=== PATIENT | male | born 1955 | race Caucasian/White ===

== ENCOUNTER 2016-12-09 11:54 | Emergency (ER) | payer BC ==
[~2016-12-09] VITALS: Ht 188 cm; Wt 138.1 kg
[~2016-12-09 11:54] MED LIST: BENA20TA3 PO; BENZ200C36 PO; CARV25TA2 PO; FURO20TA4 PO; PROM5SYR PO; SPIR25TA4 PO; WARF5TAB6 PO
--- OUTSIDE RECORDS SUMMARY | 2016-12-09 11:58 | XMS REPORT ---
Author Author Hema Rendon Organization [facility] Address [address] [place] [address] Care Team Providers Care Biodiesel Product Development Manager Name Role Phone Hema Rendon Unavailable [phone] PROBLEMS Type Condition ICD9-CM Code UFC22-CI Code Onset Dates Condition Status SNOMED Code Problem Diastolic CHF I50.30 Active 424508413 Problem TIA (transient ischemic attack) G45.9 Active 156831613 Problem Bradycardia R00.1 Active 73539118 Problem Sleep apnea G47.30 Active 48520232 Problem Systolic dysfunction I51.9 Active 000073922 Problem Atrial fibrillation I48.91 Active 27220936 Problem AICD (automatic cardioverter/defibrillator) present Z95.810 Active 625166780 Problem HTN (hypertension) I10 Active 63290231 Problem Ventricular tachycardia I47.2 Active 00723268 Problem Tricuspid valve regurgitation, nonrheumatic I36.1 Active 708801991 Problem Aortic valve insufficiency I35.1 Active 22331786 Problem Pulmonary embolism I26.99 Active 57529618 Problem PVC (premature ventricular contraction) I49.3 Active 18947784 Problem Mitral valve regurgitation I34.0 Active 41227533 Problem Hyperlipidemia E78.5 Active 31854607 ALLERGIES Unknown Allergies SOCIAL HISTORY No smoking Hx information available PLAN OF CARE VITAL SIGNS MEDICATIONS Unknown Medications RESULTS No Results PROCEDURES No Known procedures IMMUNIZATIONS No Known Immunizations
--- OUTSIDE RECORDS SUMMARY | 2016-12-09 11:59 | XMS REPORT ---
Author Hema Moura Organization [employer] Address Unknown Phone Unavailable Care Team Providers Care Content Assistant Name Role Phone Hema Rendon CP Unavailable Allergies No Known Allergies Problems Problem Type Condition Code Onset Dates Condition Status Problem Hyperlipidemia E78.5 Active Problem Bradycardia R00.1 Active Problem Diastolic CHF I50.30 Active Problem Systolic dysfunction I51.9 Active Problem HTN (hypertension) I10 Active Problem Sleep apnea G47.30 Active Problem AICD (automatic cardioverter/defibrillator) present Z95.810 Active Problem TIA (transient ischemic attack) G45.9 Active Problem Ventricular tachycardia I47.2 Active Problem Atrial fibrillation I48.91 Active Problem Mitral valve regurgitation I34.0 Active Problem Tricuspid valve regurgitation, nonrheumatic I36.1 Active Problem Aortic valve insufficiency I35.1 Active Problem Pulmonary embolism I26.99 Active Problem PVC (premature ventricular contraction) I49.3 Active Medications Medication Code System Code Instructions Start Date End Date Status Dosage Furosemide [facility] [address]-25 20 MG Orally Twice a day/As needed 1 tablet Albuterol Sulfate HFA [facility] [address]-47 108 (90 Base) MCG/ACT Inhalation every 4 hrs 2 puffs as needed Multivitamins [facility] [address] Orally Once a day 1 tablet Omeprazole [facility] [address]-10 20 MG Orally Once a day 1 capsule Promethazine VC/Codeine [facility] [address]-39 6.25-5-10 MG/5ML Orally every 6 hrs May 17, 2016 5 ml as needed Cefdinir [facility] [address]-98 300 MG Orally every 12 hrs 1 capsule Vitamin C [facility] [address]-58 1000 MG Orally Once a day 1 tablet Spironolactone [facility] 97736177753 25 TAKE ONE TABLET BY MOUTH DAILY Iophen C-NR [facility] [address]-79 100-10 MG/5ML Orally every 4 hrs May 23, 2016 5 ml Citracal + D NDC 0 Orally Once a day 1 tablet Losartan Potassium [facility] [address]-18 50 MG Orally Once a day May 25, 2016 1 tablet Warfarin Sodium [facility] [address]-14 5 MG Orally Once a day/As directed 1 tablet Carvedilol [facility] [address]-79 25 MG Orally Twice a day February 07, 2016 1 tablet with food Krill Oil [facility] [address] 300 MG Orally Once a day 1 capsule Results No Known Results Summary Purpose [employer] Submission
--- OUTSIDE RECORDS SUMMARY | 2016-12-09 11:59 | XMS REPORT | Referral Summary ---
Author Author [facility] Organization [facility] Address Unknown Phone Unavailable Care Team Providers Care Junior Assistant Manager Name Role Phone Blanca Cruz Primary Care Physician [phone] Encounter VC Date(s): 09/15/16 - 09/15/16 [facility] [address] [place], [place] [address] Discharge Disposition: 01-Home or Self Care Attending Physician: Emile Cruz MD Admitting Physician: Emile Cruz MD Vital Signs No data available for this section Problem List Condition Effective Dates Status Health Status Informant Device 01/22/14 - 01/25/14 Resolved Shock(Confirmed)1 Essential Active hypertension (disorder)(Confirmed ) H/o CHF(Confirmed) Active Irregular heart Active rhythm(Confirmed) Obstructive sleep Active apnea syndrome (disorder)(Confirmed ) Paroxysmal Active ventricular tachycardia (disorder)(Confirmed ) 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 ) Pulmonary Active embolism(Confirmed) Sleep Active apnea(Confirmed) Transient ischemic Active attack(Confirmed) Ventricular Active tachycardia(Confirme d) 1[facility]ization- [facility] Allergies, Adverse Reactions, Alerts No Known Medication Allergies Medications carvedilol 25 mg oral tablet 1 tabs, Oral, BID, # 60 tabs, 0 Refill(s) Start Date: 12/19/14 Status: Ordered furosemide 20 mg oral tablet 1 tabs, Oral, BID, 0 Refill(s) Start Date: 12/19/14 Status: Ordered losartan 50 mg oral tablet 50 mg 1 tabs, Oral, Daily, # 30 tabs, 11 Refill(s), Pharmacy: [facility] # [id number], 1 tabs Oral Daily Start Date: 05/25/16 Status: Ordered warfarin 5 mg oral tablet 1 tabs, Oral, Daily, # 30 tabs, 0 Refill(s) Start Date: 12/19/14 Status: Ordered Results No data available for this section Immunizations Given and Recorded Vaccine Date Status Refusal Reason influenza virus vaccine, inactivated 04/29/14 Recorded influenza virus vaccine, live 06/29/13 Given influenza virus vaccine, live 06/04/10 Given influenza virus vaccine, live 08/09/08 Given pneumococcal 13-valent conjugate vaccine 09/23/14 Recorded tetanus-diphth toxoids (Td) adult/adol 03/04/07 Given Procedures Procedure Date Related Diagnosis Body Site AICD Interrogation1 01/24/14 Transesophageal Echocardiography2 01/24/14 Echocardiogram3 01/23/14 Hospital admission [facility] 05/20/12 History of knee surgery 06/01/11 Hospital admission [facility] 09/2009 Cystoscopy, Lt Ureteroscopy, Laser 2009 pulverization6 ESWL-w/placement of double pigtail Urethral 2009 Stent Left Total Hip Arthroplasty 2009 Colonoscopy 11/09/08 Hospital admission [facility] 11/07/08 Colonoscopy 11/03/08 Hospital admission [facility] 11/01/08 Colonoscopy 06/17/07 History of total left hip replacement Vasectomy [address] [place] [address] Dr [facility] Hema Rendon -05/22/2012 Chest Pressure/Shortness of Breath 5Excrutiation Lt Flank Pain w/N&V 6Dense Lt Upper Ureteral Stone 7Left Kidney Stone/Chemical Analysis 18-11/14/2008 Gi Bleed secondary to Diverticular Bleed /-11/06/2008 Bloody Stool Social History Social History Type Response Smoking Status Former smoker Assessment and Plan No data available for this section
--- OUTSIDE RECORDS SUMMARY | 2016-12-09 11:59 | XMS REPORT ---
Author Hema Moura Organization [employer] Address Unknown Phone Unavailable Care Team Providers Care Barge Loader Name Role Phone Hema Rendon CP Unavailable [...] PVC (premature ventricular contraction) I49.3 Active Medications No Known Medications Results No Known Results Summary Purpose [employer] Submission
--- OUTSIDE RECORDS SUMMARY | 2016-12-09 11:59 | XMS REPORT | Referral Summary ---
Author Author [facility] Organization [facility] Address Unknown Phone Unavailable Care Team Providers Care Microbiological Analyst Name Role Phone Blanca Cruz Primary Care Physician [phone] Encounter VC Date(s): 05/12/16 - 05/12/16 [facility] [address] [place], [place] [address] Discharge Diagnosis: Cough Discharge Disposition: 01-Home or Self Care Attending Physician: Emile Cruz MD Admitting Physician: Emile Curz MD Vital Signs Most recent to 1 oldest [Reference Range]: Blood Pressure 120/66 mmHg [90-140/60-90 mmHg] (05/12/16 3:58 PM) Problem List Condition Effective Dates Status Health Status Informant Device 01/22/14 - 01/25/14 Resolved Shock(Confirmed)1 Essential Active hypertension (disorder)(Confirmed ) H/o CHF(Confirmed) Active Irregular heart Active rhythm(Confirmed) Obstructive sleep Active apnea syndrome (disorder)(Confirmed ) Paroxysmal Active ventricular tachycardia (disorder)(Confirmed ) 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 ) Pulmonary Active embolism(Confirmed) Sleep Active apnea(Confirmed) Transient ischemic Active attack(Confirmed) Ventricular Active tachycardia(Confirme d) [facility] Allergies, Adverse Reactions, Alerts No Known Medication Allergies Medications benazepril 40 mg oral tablet 1 tabs, Oral, Daily, # 30 tabs, 0 Refill(s) Start Date: 12/19/14 Status: Ordered carvedilol 25 mg oral tablet 1 tabs, Oral, BID, # 60 tabs, 0 Refill(s) Start Date: 12/19/14 Status: Ordered furosemide 20 mg oral tablet 1 tabs, Oral, BID, 0 Refill(s) Start Date: 12/19/14 Status: Ordered warfarin 5 mg oral tablet 1 tabs, Oral, Daily, # 30 tabs, 0 Refill(s) Start Date: 12/19/14 Status: Ordered Results No data available for this section Immunizations Vaccine Date Refusal Reason influenza virus vaccine, inactivated 04/29/14 influenza virus vaccine, live 06/29/13 influenza virus vaccine, live 06/04/10 influenza virus vaccine, live 08/09/08 pneumococcal 13-valent conjugate vaccine 09/23/14 tetanus-diphth toxoids (Td) adult/adol 03/04/07 Procedures Procedure Date Related Diagnosis Body Site AICD Interrogation1 01/24/14 Transesophageal Echocardiography2 01/24/14 Echocardiogram3 01/23/14 [facility] 05/20/12 History of knee surgery 06/01/11 Hospital admission [facility] 09/2009 Cystoscopy, Lt Ureteroscopy, Laser 2009 pulverization6 ESWL-w/placement of double pigtail Urethral 2009 Stent7 Left Total Hip Arthroplasty 2009 Colonoscopy 11/09/08 Hospital admission [facility] 11/07/08 Hospital admission [facility] 11/01/08 History of total left hip replacement Vasectomy [address] [place] [address] Dr [facility] H[facility]endon -05/22/2012 Chest Pressure/Shortness of Breath 5Excrutiation Lt Flank Pain w/N&V 6Dense Lt Upper Ureteral Stone 7Left Kidney Stone/Chemical Analysis -11/14/2008 Gi Bleed secondary to Diverticular Bleed -11/06/2008 Bloody Stool Social History Social History Type Response Smoking Status Former smoker Assessment and Plan Extracted from: Title: Office Visit Note Author: Emile Cruz MD Date: 05/12/16 Assessment/Plan Cough this could be GERD, check CXR, discussed antireflux measures and will start omeprazole with supper Ordered: Office Visit Level 3 Est 85644 XR Chest 2 Views
--- OUTSIDE RECORDS SUMMARY | 2016-12-09 11:59 | XMS REPORT | Referral Summary ---
Author Author [facility] Organization [facility] Address Unknown Phone Unavailable Care Team Providers Care Product Development Actuary Name Role Phone Blanca Cruz Primary Care Physician [phone] Encounter VC Date(s): 09/22/16 - 09/22/16 [facility] [address] [place], [place] [address] Discharge Disposition: 01-Home or Self Care Attending Physician: mEile rCuz MD Admitting Physician: Emile Cruz MD Vital [...] Active attack(Confirmed) Ventricular Active tachycardia(Confirme d) 1[facility] Allergies, Adverse Reactions, Alerts No Known Medication Allergies Medications carvedilol 25 mg oral tablet 1 tabs, Oral, BID, # 60 tabs, 0 Refill(s) Start Date: 12/19/14 Status: Ordered furosemide 20 mg oral tablet 1 tabs, Oral, BID, 0 Refill(s) Start Date: 12/19/14 Status: Ordered losartan 50 mg oral tablet 50 mg 1 tabs, Oral, Daily, # 30 tabs, 11 Refill(s), Pharmacy: [facility] # [id number], 1 tabs Oral Daily Start Date: 05/25/16 [...] [facility] -05/22/2012 Chest Pressure/Shortness of Breath 5Excrutiation Lt Flank Pain w/N&V 6Dense Lt Upper Ureteral Stone 7Left Kidney Stone/Chemical Analysis 18-11/14/2008 Gi Bleed secondary to Diverticular Bleed /-11/06/2008 Bloody Stool Social History Social History Type Response Smoking Status Former smoker Assessment and Plan No data available for this section
--- OUTSIDE RECORDS SUMMARY | 2016-12-09 11:59 | XMS REPORT ---
Author Author Hema Rendon Organization [facility] Address [address] [place] [address] Care Team Providers Care Lacrosse Coach Name Role Phone Hema Rendon Unavailable [phone] PROBLEMS Type Condition ICD9-CM Code KYQ99-DS Code Onset Dates Condition Status SNOMED Code Problem Diastolic CHF I50.30 Active 945120901 Problem TIA (transient ischemic attack) G45.9 Active 347464504 Problem Bradycardia R00.1 Active 87167318 Problem Sleep apnea G47.30 Active 44409664 Problem Systolic dysfunction I51.9 Active 473918403 Problem Atrial fibrillation I48.91 Active 72352748 Problem AICD (automatic cardioverter/defibrillator) present Z95.810 Active 772235790 Problem HTN (hypertension) I10 Active 38221186 Problem Ventricular tachycardia I47.2 Active 43648041 Problem Tricuspid valve regurgitation, nonrheumatic I36.1 Active 167248311 Problem Aortic valve insufficiency I35.1 Active 90693979 Problem Pulmonary embolism I26.99 Active 96187548 Problem PVC (premature ventricular contraction) I49.3 Active 12865659 Problem Mitral valve regurgitation I34.0 Active 13997797 Problem Hyperlipidemia E78.5 Active 54213844 ALLERGIES Unknown Allergies SOCIAL HISTORY No smoking Hx information available PLAN OF CARE VITAL SIGNS MEDICATIONS Medication Instructions Dosage Frequency Start Date End Date Duration Status Warfarin Sodium 5 MG Orally Once a day/As directed 1 tablet 30 days Active RESULTS No Results PROCEDURES No Known procedures IMMUNIZATIONS No Known Immunizations
--- OUTSIDE RECORDS SUMMARY | 2016-12-09 11:59 | XMS REPORT | Referral Summary ---
Author Author [facility] Organization [facility] Address Unknown Phone Unavailable Care Team Providers Care Wholesale Manager Name Role Phone Blanca Cruz Primary Care Physician [phone] Encounter VC Date(s): 10/07/16 - 10/07/16 [facility] [address] [place], [place] [address] Discharge Diagnosis: Low back pain Discharge Disposition: 01-Home or Self Care Attending Physician: Emile Cruz MD Vital Signs Most recent to 1 oldest [Reference Range]: Blood Pressure 120/70 mmHg [90-140/60-90 mmHg] (10/07/16 9:48 AM) Problem List Condition Effective Dates Status Health Status Informant Device 01/22/14 - 01/25/14 Resolved Shock(Confirmed)1 Essential Active hypertension (disorder)(Confirmed ) H/o CHF(Confirmed) Active Irregular heart Active rhythm(Confirmed) Obstructive sleep Active apnea syndrome (disorder)(Confirmed ) Paroxysmal Active ventricular tachycardia (disorder)(Confirmed ) 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 ) Pulmonary Active embolism(Confirmed) Sleep Active apnea(Confirmed) Transient ischemic Active attack(Confirmed) Ventricular Active tachycardia(Confirme d) 1[facility]ization- [facility] Allergies, Adverse Reactions, Alerts No Known Medication Allergies Medications carvedilol 25 mg oral tablet 1 tabs, Oral, BID, # 60 tabs, 0 Refill(s) Start Date: 12/19/14 Status: Ordered losartan 50 mg oral tablet 50 mg 1 tabs, Oral, Daily, # 30 tabs, 11 Refill(s), Pharmacy: [facility] # [id number], 1 tabs Oral Daily Start Date: 05/25/16 Status: Ordered spironolactone 25 mg oral tablet 25 mg 1 tabs, Oral, Daily, # 30 tabs, 0 Refill(s), other reason (Rx) Start Date: 10/07/16 Status: Ordered torsemide 20 mg oral tablet 20 mg 1 tabs, Oral, Daily, # 30 tabs, 0 Refill(s), other reason (Rx) Start Date: 10/07/16 Status: Ordered warfarin 5 mg oral tablet [...] [facility] 09/2009 Cystoscopy, Lt Ureteroscopy, Laser 2009 pulverization ESWL-w/placement of double pigtail Urethral 2009 Stent Left Total Hip Arthroplasty 2009 Colonoscopy 11/09/08 Hospital admission [facility] 11/07/08 Colonoscopy 11/03/08 Hospital admission [facility] 11/01/08 Colonoscopy 06/17/07 History of total left hip replacement Vasectomy [address] [place] [address] Dr Anusha Rendon [address] [place] [address] Dr Anusha Rendon [address] [place] [address] Dr Hema Rendon /-05/22/2012 Chest Pressure/Shortness of Breath 5Excrutiation Lt Flank Pain w/N&V 6Dense Lt Upper Ureteral Stone 7Left Kidney Stone/Chemical Analysis -11/14/2008 Gi Bleed secondary to Diverticular Bleed -11/06/2008 Bloody Stool Social History Social History Type Response Smoking Status Former smoker Assessment and Plan Extracted from: Title: Office Visit Note Author: Emile Cruz MD Date: 10/07/16 Assessment/Plan Low back pain reassured, xray, booklet on back care for stretches and strengthening and consider PT next Ordered: Office Visit Level 3 Est 10775 XR Spine Lumbosacral 2 or 3 Views
--- OUTSIDE RECORDS SUMMARY | 2016-12-09 12:00 | XMS REPORT ---
Author Author Hema Rendon Organization [facility] Address [address] [place] [address] Care Team Providers Care Nurse Assessor Name Role Phone Hema Rendon Unavailable [phone] PROBLEMS Type Condition ICD9-CM Code CNO78-EC Code Onset Dates Condition Status SNOMED Code Problem Diastolic CHF I50.30 Active 868654374 Problem TIA (transient ischemic attack) G45.9 Active 360015903 Problem Bradycardia R00.1 Active 20980003 Problem Sleep apnea G47.30 Active 85321588 Problem Systolic dysfunction I51.9 Active 830399130 Problem Atrial fibrillation I48.91 Active 06362352 Problem AICD (automatic cardioverter/defibrillator) present Z95.810 Active 777171473 Problem HTN (hypertension) I10 Active 52313120 Problem Ventricular tachycardia I47.2 Active 43362947 Problem Tricuspid valve regurgitation, nonrheumatic I36.1 Active 938557457 Problem Aortic valve insufficiency I35.1 Active 00342835 Problem Pulmonary embolism I26.99 Active 14690667 Problem PVC (premature ventricular contraction) I49.3 Active 35460055 Problem Mitral valve regurgitation I34.0 Active 91705522 Problem Hyperlipidemia E78.5 Active 39879580 ALLERGIES Unknown Allergies SOCIAL HISTORY No smoking Hx information available PLAN OF CARE VITAL SIGNS MEDICATIONS Unknown Medications RESULTS No Results PROCEDURES No Known procedures IMMUNIZATIONS No Known Immunizations
--- OUTSIDE RECORDS SUMMARY | 2016-12-09 12:00 | XMS REPORT | Continuity of Care Document ---
Author Author [facility] Organization [facility] Address Unknown Phone Unavailable Support Name Relationship Address Phone Darion HUGHES MD Caregiver [address] [facility] [address] [place] [address] YAMILE PATHAK MD Caregiver [address] [place] [address] [place] [phone] TOMEKA TINEO Caregiver [address] [facility] [address] [place] [address] OLGA HOYT Next Of Kin [address] [place] [address] Insurance Providers Payer Name Policy Number Subscriber Name Relationship [employer] Other [id number] Elvia Hoyt 19 Self Problems Medical Problems Problem Onset Date Status Dyspnea 10/09/2014 Active Orthopnea 10/09/2014 Active Pulmonary emboli Unknown Active CHF (congestive heart failure) Unknown Active Pulmonary emboli Unknown Active Medications Medication Dose Route Sig Days/Qty Instructions Order Date Discontinued Date Status Hydrochlorothiazide 1 Tab PO TWICE A DAY 10/09/14 Active Sotalol HCl 80 Mg PO BEFORE MEALS TWICE A DAY Take 1 tablet, by mouth, 2 times a day (before meals). 10/09/14 Active Metoprolol Tartrate 25 Mg PO TWICE DAILY WITH MEALS 10/09/14 Active Benazepril HCl 1 Tab PO DAILY 10/09/14 Active Rivaroxaban 20 Mg PO GIVE WITH SUPPER Take 1 tablet, by mouth, daily with evening meal. 10/09/14 Active Social History Social History Problem Response Recorded Date/Time Chewing Tobacco Status N QUIT 10/09/2014 8:47am Hx Substance Use No 10/09/2014 8:47am Hx Alcohol Use No 10/09/2014 8:47am Tobacco Usage none 10/09/2014 10:39am Query Response Start Date Stop Date Smoking Status Never smoker Hospital Discharge Instructions No hospital discharge instructions. Plan of Care No plan of care. Functional Status Query Response Date Recorded Physical Hygiene Self October 09, 2014 8:47am Disabilities Visual October 09, 2014 8:47am Devices Used Glasses October 09, 2014 8:47am Dressing Self October 09, 2014 8:47am Ambulation Self October 09, 2014 8:47am Diet Self October 09, 2014 8:47am Mental Status Alert Oriented October 09, 2014 10:29am Disabilities Visual October 09, 2014 8:47am Devices Used Glasses October 09, 2014 8:47am Physical Hygiene Self October 09, 2014 8:47am Dressing Self October 09, 2014 8:47am Ambulation Self October 09, 2014 8:47am Diet Self October 09, 2014 8:47am Allergies, Adverse Reactions, Alerts Allergen Type Severity Reaction Status Last Updated No Known Allergies Active 10/09/14 Immunizations Name Given Type Hx Influenza Vaccination Y 07/06 Historical Hx Pneumococcal Vaccination Y 09/06 Historical Hx Influenza Vaccination Y 07/06 Historical Vital Signs Acute Vital Signs Vital Response Date/Time Temperature (Fahrenheit) 97.7 deg F (96.8 - 99.1) Temperature (Calculated Celsius) 36.59781 degrees C (36.0 - 37.3) Pulse Rate (adult) 96 bpm (60 - 100) Respiratory Rate 22 breaths/min (10 - 20) O2 Sat by Pulse Oximetry 96 % (90 - 100) Oxygen Flow Rate 2 L/min Blood Pressure 141/102 mm Hg Height 6 ft 2 in Weight 275 lb Body Mass Index 35.0 kg/m^2 Results Test Source Date Result Interp. Ref. Range Comments Urine Mucus October 09, 2014 10:02am Present - Has specimen been collected/obtained? Y Urine Bacteria October 09, 2014 10:02am None seen - Has specimen been collected/obtained? Y Urine Squamous Epithelial Cells October 09, 2014 10:02am 0-5 - Has specimen been collected/obtained? Y Urine RBC October 09, 2014 10:02am 0-1 /HPF - Has specimen been collected/obtained? Y Urine WBC October 09, 2014 10:02am 0-1 /HPF - Has specimen been collected/obtained? Y Urine Blood October 09, 2014 10:02am Negative - Has specimen been collected/obtained? Y Urine Bilirubin October 09, 2014 10:02am Negative - Has specimen been collected/obtained? Y Urine Urobilinogen October 09, 2014 10:02am 0.2 EU/DL - Has specimen been collected/obtained? Y Urine Ketones October 09, 2014 10:02am Negative - Has specimen been collected/obtained? Y Urine Glucose (UA) October 09, 2014 10:02am Negative - Has specimen been collected/obtained? Y Urine Protein October 09, 2014 10:02am 2+ H - Has specimen been collected/obtained? Y Urine Nitrite October 09, 2014 10:02am Negative - Has specimen been collected/obtained? Y Urine Leukocyte Esterase October 09, 2014 10:02am Negative - Has specimen been collected/obtained? Y Urine pH October 09, 2014 10:02am 5.5 - Has specimen been collected/ obtained? Y Urine Specific [place] October 09, 2014 10:02am >=1.030 H - Has specimen been collected/obtained? Y Urine Turbidity October 09, 2014 10:02am Clear - Has specimen been collected/obtained? Y Urine Color October 09, 2014 10:02am Yellow - Has specimen been collected/obtained? Y Urine Collection Type October 09, 2014 10:02am Cleancatch-midstream - Has specimen been collected/obtained? Y Troponin I October 09, 2014 8:10am 0.028 ng/ml N 0-0.12 Turbidity October 09, 2014 8:10am < 20 0-20 Chemistry Specimen Hemolysis October 09, 2014 8:10am 46 H 0-25 0-25: No Hemolysis.26-70: Slight Hemolysis - can falsely elevate K and Urine Protein. 71-285: Moderate Hemolysis - can falsely elevate K, Troponin I, CA 19-9, PTH, CSF GLucose, and Urine Protein, and can falsely decrease Phenytoin. 286-999: Gross Hemolysis - can falsely elevate K, Troponin I, CA 19-9, PTH, CSF Glucose, and Urine Protine, and can falsely decrease Phenytoin. Recommend specimen recollection. Icterus Index October 09, 2014 8:10am < 2 0-7 PK-Rag-T-Type Natriuretic Peptide October 09, 2014 8:10am 4920 PG/ML H 0-175 Rule in cut points: <50 years old=450; 50-75 years old=900; >75 years old=1800; When utilizing ProBNP rule-in cut points, adjustment for impaired renal function is typically not required. Influenza Type B Antigen October 09, 2014 8:10am Negative - Negative for Flu B protein antigen. Assay sensitivity is90%. Influenza Type A Antigen October 09, 2014 8:10am Negative - Negative for Flu A protein antigen. Assay sensitivity is90%. Alanine Aminotransferase (ALT/SGPT) October 09, 2014 8:10am 68 U/L N 21 -72 Aspartate Amino Transf (AST/SGOT) October 09, 2014 8:10am 49 U/L N 17- 59 Albumin/Globulin Ratio October 09, 2014 8:10am 1.4 RATIO N 1.1-2.2 Globulin October 09, 2014 8:10am 2.8 G/DL N 2.4-3.6 Albumin October 09, 2014 8:10am 3.9 G/DL N 3.5-5.0 Total Protein October 09, 2014 8:10am 6.7 G/DL N 6.3-8.2 Alkaline Phosphatase October 09, 2014 8:10am 103 U/L N 38-126 Total Bilirubin October 09, 2014 8:10am 1.00 MG/DL N 0.20-1.30 Calcium Level October 09, 2014 8:10am 9.2 MG/DL N 8.4-10.2 Calculated Osmolality October 09, 2014 8:10am 287 MOSM/KG H 261-280 Glucose Level October 09, 2014 8:10am 172 MG/DL H 75-110 Glomerular Filtration Rate Calc October 09, 2014 8:10am 116 - BUN/Creatinine Ratio October 09, 2014 8:10am 34 RATIO H 6-26 Creatinine October 09, 2014 8:10am 0.7 MG/DL L 0.8-1.5 Blood Urea Nitrogen October 09, 2014 8:10am 24.0 MG/DL H 9-20 Anion Gap October 09, 2014 8:10am 13 MEQ/L N 5-15 Carbon Dioxide Level October 09, 2014 8:10am 22 MEQ/L N 22-30 Chloride Level October 09, 2014 8:10am 110 MEQ/L H 98-107 Potassium Level October 09, 2014 8:10am 4.4 MEQ/L N 3.6-5 Sodium Level October 09, 2014 8:10am 145 MEQ/L H 134-144 D-Dimer October 09, 2014 8:10am 319 NG/ML H 0-230 <230 NG/ML D-DU= PRESUMPTIVE NEGATIVE FOR PE OR DVT>230 NG/ML D-DU=ADDITIONAL EVAL FOR PE OR DVT RECOMMENDED Activated Partial Thromboplast Time October 09, 2014 8:10am 34.8 SEC N 24-36 Ordering r/o VTE Yes Prothromb Time International Ratio October 09, 2014 8:10am 1.49 H 0.81- 1.09 THERAPUTIC RANGE=2.00-3.00 FOR ANTI-THROMBOSIS THERAPUTIC RANGE=2.50- 3.50 FOR IMPLANTED VALVE Immature Granulocyte # (Auto) October 09, 2014 8:10am 0.01 T/MM3 N 0.00 -0.03 Basophils # (Auto) October 09, 2014 8:10am 0.0 T/MM3 N 0-0.2 Eosinophils # (Auto) October 09, 2014 8:10am 0.0 T/MM3 N 0-0.5 Monocytes # (Auto) October 09, 2014 8:10am 0.5 T/MM3 N 0-0.8 Lymphocytes # (Auto) October 09, 2014 8:10am 1.4 T/MM3 N 1-4.8 Neutrophils # (Auto) October 09, 2014 8:10am 5.7 T/MM3 N 1.8-7.7 Immature Granulocyte % (Auto) October 09, 2014 8:10am 0.1 % N 0.0-0.5 Basophils (%) (Auto) October 09, 2014 8:10am 0.4 % N 0-2 Eosinophils (%) (Auto) October 09, 2014 8:10am 0.5 % N 0-4 Monocytes (%) (Auto) October 09, 2014 8:10am 6.4 % N 0-9.0 Lymphocytes (%) (Auto) October 09, 2014 8:10am 17.8 % L 23-45 Neutrophils (%) (Auto) October 09, 2014 8:10am 74.8 % H 33-66 Mean Platelet Volume October 09, 2014 8:10am 12.1 UM3 N 9.4-12.4 Platelet Count October 09, 2014 8:10am 148 T/MM3 N 130-400 RDW Standard Deviation October 09, 2014 8:10am 47.7 FL N 36.9-50.2 Mean Corpuscular Hemoglobin Concent October 09, 2014 8:10am 33.1 GM/DL N 31-37 Mean Corpuscular Hemoglobin October 09, 2014 8:10am 29.6 UUG N 26-34 Mean Corpuscular Volume October 09, 2014 8:10am 89.4 UM3 N 80-100 Hematocrit October 09, 2014 8:10am 44.7 % N 41-53 Hemoglobin October 09, 2014 8:10am 14.8 GM/DL N 13.5-17.5 Red Blood Count October 09, 2014 8:10am 5.00 M/MM3 N 4.50-5.90 White Blood Count October 09, 2014 8:10am 7.6 T/MM3 N 4.5-11.0 Name: ELVIA HOYT Unit #: [id number] : [id number] Sex: M Loc / Svc: ED DOS: 10/09/14 Signed Report #: [id number] DIAGNOSTIC IMAGING REPORT TYPE OF EXAM: CTA PULMONARY EMBOLI Dictated By: JUANA SHAHID MD Indication: ITS.REASON: DYSPNEA, ORTHOPNEA, ELEVATED DDIMER CTA PULMONARY EMBOLI: Comparison: None Technique: Axial CT pulmonary angiographic phase images were performed through the chest after the administration of intravenous contrast. Coronal MIP reformats Contrast: Isovue 370 74 mL Findings: Pulmonary arteries: Exam is diagnostic to the subsegmental pulmonary arterial level. There are apparent filling defects within two left lower lobe subsegmental pulmonary artery branches. Other findings: There are small to moderate bilateral pleural effusions with scattered groundglass opacities in both lower lobes. No pneumothorax. No focal consolidative pneumonia. The central airways are patent. No axillary adenopathy. Mildly prominent left paratracheal and prevascular lymph nodes measuring up to 1.1 cm in short axis could be reactive. Heart size is normal. No pericardial effusion. Mild reflux of contrast into the hepatic veins suggesting right heart insufficiency. Probable left adrenal adenoma. Upper abdomen is otherwise grossly unremarkable. Impression: 1. Tiny probable subsegmental left lower lobe pulmonary emboli. 2. Findings of congestive failure with moderate pleural effusions. These results were discussed with Dr. Pathak in the emergency department at 1006 on October 09, 2014. . Procedures No known history of procedures. Encounters Encounter Location Date/Time Departed Emergency Room [facility] 10/09/14 7:50am Recent Diagnosis
--- OUTSIDE RECORDS SUMMARY | 2016-12-09 12:00 | XMS REPORT | Continuity of Care Document ---
Author Author [facility] Organization [facility] Address Unknown Phone Unavailable Support Name Relationship Address Phone Darion HUGHES MD Caregiver [address] [place] [address] Unavailable TOMEKA TINEO Caregiver [address] [facility] [address] [place] [address] Unavailable AB SIERRA MD Caregiver [address] [place] [address] [place] [address] Unavailable SAY HOYT Next Of Kin Unknown [phone] Insurance Providers Guarantor Elvia Hoyt Address [address] [place] [address] Email DENIED/NO TO PT PORTAL Payer [employer] Other Policy Number [id number] Subscriber's Name Elvia Hoyt Relationship 18 Self Group Number [id number] Advance Directives Directive Response Recorded Date/Time Advanced Directives Type None 05/17/16 7:14am Chief Complaint and Reason for Visit Chief Complaint Cough,Fever,Flu,URI Reason for Visit Cough Problems Active Problems Medical Problem Onset Date Status CHF (congestive heart failure) Unknown Acute Dyspnea 10/09/2014 Acute Orthopnea 10/09/2014 Acute Pulmonary emboli Unknown Acute Pulmonary emboli Unknown Acute Past Problems Medical Problem Onset Date Cough Unknown Medications Current Home Medications Medication Dose Units Route Directions Days Qty Instructions Start Date Benazepril Hcl 20 Mg Tablet 1 Tab Oral Daily 10/09/14 Benzonatate 200 Mg Capsule 1 Cap Oral Every 8 Hours as needed for Cough 20 Capsule DO NOT BITE, CHEW, OR CRUSH 05/17/16 Carvedilol 25 Mg Tablet 1 Tab Oral Twice Daily With Meals BEST WITH FOOD. 05/17/16 Furosemide 20 Mg Tablet 1 Tab Oral Twice A Day 05/17/16 Promethazine Hcl/Codeine (Prometh-Codein 6.25-10 Mg/5 Ml) 5 Ml Syrup 5 Ml Oral Every 6 Hours as needed for Cough 50 Milliliter 05/17/16 Spironolactone 25 Mg Tablet 25 Mg Oral Twice A Day 05/17/16 Warfarin Sodium 5 Mg Tablet 5 Mg Oral 0630 Take 1 tablet, by mouth, 1 time a day (at 5 pm). 05/17/16 Social History Social History Problem Response Recorded Date/Time Onset Date Status Chewing Tobacco Status No 05/17/2016 7:47am Not Applicable Not Applicable Hx Substance Use No 05/17/2016 7:47am Not Applicable Not Applicable Hx Alcohol Use No 05/17/2016 7:47am Not Applicable Not Applicable Tobacco Usage none 10/09/2014 10:39am Not Applicable Not Applicable Query Response Start Date Stop Date Smoking Status Never smoker Hospital Discharge Instructions No hospital discharge instructions. Plan of Care Discharge Date 05/17/16 8:17am Disposition 01 DISCHARGED HOME, SELF-CARE Condition at Discharge Stable Instructions/Education Provided Cough Prescriptions See Medication Section Referrals TOMEKA TINEO Address: [address] [address] Note: Follow-up for re-evaluation Care Plan and Goals Physician Care Plan Problem: Cough Goal: Follow up with primary care provider Instructions: Take medications and follow care plan as discussed/written Functional Status No functional status results. Allergies, Adverse Reactions, Alerts No known allergies. Immunizations Query Response on File Recorded Date/Time Hx Influenza Vaccination Y 07/0610/09/14 8:47am Hx Pneumococcal Vaccination Y 09/0610/09/14 8:47am Hx Influenza Vaccination Y 07/0610/09/14 8:47am Influenza Vaccine Hx 2015 05/17/16 7:47am Vital Signs Acute Vital Signs Vital Response Date/Time Temperature (Fahrenheit) 97.8 deg F (96.8 - 99.1) 05/17/2016 8:17am Temperature (Calculated Celsius) 36.95152 degrees C (36.0 - 37.3) 05/17/2016 8:17am Pulse Rate (adult) 89 bpm (60 - 100) 05/17/2016 8:17am Respiratory Rate 18 breaths/min (10 - 20) 05/17/2016 8:17am O2 Sat by Pulse Oximetry 94 % (90 - 100) 05/17/2016 8:17am Blood Pressure 138/78 mm Hg 05/17/2016 8:17am Height (Feet) 6 feet 05/17/2016 7:14am Height (Inches) 2.00 inches 05/17/2016 7:14am Weight (Kilograms) 138.200 kg 05/17/2016 7:14am Body Mass Index (BMI) 39.0 05/17/2016 7:14am Results No known relevant diagnostic tests, laboratory data and/or discharge summary. Procedures No known history of procedures. Encounters Encounter Location Arrival/Admit Date Discharge/Depart Date Attending Provider Departed Emergency Room [facility] 05/17/16 7:06am 05/17/16 8: 17am AB SIERRA MD Recent Diagnosis
--- OUTSIDE RECORDS SUMMARY | 2016-12-09 12:00 | XMS REPORT | Referral Summary ---
Author Author [facility] Organization [facility] Address Unknown Phone Unavailable Care Team Providers Care Agent Contract Clerk Name Role Phone Blanca Cruz Primary Care Physician [phone] Encounter VC Date(s): 05/25/16 - 05/25/16 [facility] [address] [place], [place] [address] Discharge Diagnosis: Cough Discharge Diagnosis: Fatigue Discharge Disposition: 01-Home or Self Care Attending Physician: Emile Cruz MD Vital Signs Most recent to 1 oldest [Reference Range]: Peripheral Pulse 86 bpm Rate [60-100 bpm] (05/25/16 10:30 AM) Blood Pressure 138/86 mmHg [90-140/60-90 mmHg] (05/25/16 10:30 AM) SpO2 97 % (05/25/16 10:30 AM) Problem List Condition Effective Dates Status [...] Active attack(Confirmed) Ventricular Active tachycardia(Confirme d) 1Hospitalization- [facility] Allergies, Adverse Reactions, Alerts No Known Medication Allergies Medications carvedilol 25 mg oral tablet 1 tabs, Oral, BID, # 60 tabs, 0 Refill(s) Start Date: 12/19/14 Status: Ordered furosemide 20 mg oral tablet 1 tabs, Oral, BID, 0 Refill(s) Start Date: 12/19/14 Status: Ordered losartan 50 mg oral tablet 50 mg 1 tabs, Oral, Daily, # 30 tabs, 11 Refill(s), Pharmacy: [facility] # [id number], 1 tabs Oral Daily Start Date: 05/25/16 Status: Ordered warfarin 5 mg oral tablet 1 tabs, Oral, Daily, # 30 tabs, 0 Refill(s) Start Date: 12/19/14 Status: Ordered Results Hematology Most recent to 1 oldest [Reference Range]: WBC [4.8-10.8 7.8 10*3/uL 10*3/uL] (05/25/16 10:48 AM) RBC [4.60-6.20] 4.82 (05/25/16 10:48 AM) Hgb [14.0-18.0 14.6 gm/dL gm/dL] (05/25/16 10:48 AM) Hct [42.0-52.0 %] 43.7 % (05/25/16 10:48 AM) MCV [82.0-99.0 fL] 90.7 fL (05/25/16 10:48 AM) MCH [27.0-32.0 pg] 30.3 pg (05/25/16 10:48 AM) MCHC [32.0-36.0 33.4 gm/dL gm/dL] (05/25/16 10:48 AM) RDW [11.5-14.5 %] 15.1 % *HI* (05/25/16 10:48 AM) Platelet [150-400 134 10*3/uL 10*3/uL] *LOW* (05/25/16 10:48 AM) MPV [8.8-14.8 fL] 12.4 fL (05/25/16 10:48 AM) Immature 0.1 % Granulocytes (05/25/16 10:48 AM) [0.0-1.0 %] Neutrophils [51-75 70 % %] (05/25/16 10:48 AM) Lymphocytes [20-46 18 % %] *LOW* (05/25/16 10:48 AM) Monocytes [4-11 %] 11 % (05/25/16 10:48 AM) Eosinophils [0-4 %] 1 % (05/25/16 10:48 AM) Basophils [0-2 %] 0 % (05/25/16 10:48 AM) Neutro Absolute 5.45 10*3 [1.90-7.00 10*3] (05/25/16 10:48 AM) Lymph Absolute 1.37 10*3 [0.80-3.30 10*3] (05/25/16 10:48 AM) Mckenzie Absolute 0.86 10*3 [0.30-1.00 10*3] (05/25/16 10:48 AM) Eos Absolute 0.10 10*3 [0.00-0.50 10*3] (05/25/16 10:48 AM) Baso Absolute 0.03 10*3 [0.00-0.20 10*3] (05/25/16 10:48 AM) Chemistry Most recent to 1 oldest [Reference Range]: Sodium Lvl [135-144 143 mEq/L mEq/L] (05/25/16 10:48 AM) Potassium Lvl 4.5 mEq/L [3.5-5.2 mEq/L] (05/25/16 10:48 AM) Chloride [99-111 114 mEq/L mEq/L] *HI* (05/25/16 10:48 AM) CO2 [23-31 mEq/L] 23 mEq/L (05/25/16 10:48 AM) AGAP [3-20] 6 (05/25/16 10:48 AM) BUN [8-26 mg/dL] 18 mg/dL (05/25/16 10:48 AM) Glucose Lvl [70-99 108 mg/dL mg/dL] *HI* (05/25/16 10:48 AM) Creatinine Lvl 0.79 mg/dL [0.72-1.25 mg/dL] (05/25/16 10:48 AM) eGFR [>60 mL/min] >60 mL/min 1 (05/25/16 10:48 AM) Calcium Lvl 8.7 mg/dL [8.9-10.5 mg/dL] *LOW* (05/25/16 10:48 AM) Albumin Lvl [3.5-5.0 4.0 gm/dL gm/dL] (05/25/16 10:48 AM) Total Protein 5.9 gm/dL [6.0-7.6 gm/dL] *LOW* (05/25/16 10:48 AM) Globulin [1.8-4.0 1.9 gm/dL gm/dL] (05/25/16 10:48 AM) ALT [0-55 U/L] 37 U/L (05/25/16 10:48 AM) AST [5-34 U/L] 24 U/L (05/25/16 10:48 AM) Alk Phos [40-150 100 U/L U/L] (05/25/16 10:48 AM) Bili Total [0.2-1.2 0.9 mg/dL mg/dL] (05/25/16 10:48 AM) 1Result Comment: Multiply eGFR results by 1.21 for race. Immunizations Vaccine Date Refusal Reason influenza virus vaccine, inactivated 04/29/14 influenza virus vaccine, live 06/29/13 influenza virus vaccine, live 06/04/10 influenza virus vaccine, live 08/09/08 pneumococcal 13-valent conjugate vaccine 09/23/14 tetanus-diphth toxoids (Td) adult/adol 03/04/07 Procedures Procedure Date Related Diagnosis Body Site Collection of venous blood by venipuncture 05/25/16 AICD Interrogation1 01/24/14 Transesophageal Echocardiography2 01/24/14 Echocardiogram3 01/23/14 Hospital admission [facility] 05/20/12 History of knee surgery 06/01/11 Hospital admission [facility] 09/2009 Cystoscopy, Lt Ureteroscopy, Laser 2009 pulverization6 ESWL-w/placement of double pigtail Urethral 2009 Stent7 Left Total Hip Arthroplasty 2009 Colonoscopy 11/09/08 Hospital admission [id number] 11/07/08 Hospital admission [facility] 11/01/08 History of total left hip replacement Vasectomy [facility] Anusha Rendon [facility] Anusha Rendon [address] Hema Rendon -05/22/2012 Chest Pressure/Shortness of Breath 5Excrutiation Lt Flank Pain w/N&V 6Dense Lt Upper Ureteral Stone 7Left Kidney Stone/Chemical Analysis /18-11/14/2008 Gi Bleed secondary to Diverticular Bleed /12-11/06/2008 Bloody Stool Social History Social History Type Response Smoking Status Former smoker Assessment and Plan Extracted from: Title: Office Visit Note Author: Emile Cruz MD Date: 05/25/16 Assessment/Plan Cough this could be post viral or related to the ACEI, will switch to losartan and 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 Ordered: Office Visit Level 3 Est 25553 Fatigue check lab, call if any adverse change Ordered: CBC w/ Differential Comprehensive Metabolic Panel Office Visit Level 3 Est 27110
--- OUTSIDE RECORDS SUMMARY | 2016-12-09 12:00 | XMS REPORT | Continuity of Care Document ---
Author Author [facility] Organization [facility] Address Unknown Phone Unavailable Allergies Active Description Code Type Severity Reaction Onset Reported/Identified Relationship to Patient Clinical Status Yes No Known Medication Allergies NKMA N/A N/A 05/25/2014 Medications Problems Procedures Results Test Result Range CBC W/DIFF - 06/22/12 15:20 GRANULOCYTE # 5.0 k/cumm 2.0-9.0 GRANULOCYTE % 69 % 50-75 LYMPHOCYTE # 1.9 k/cumm 1.0-4.0 LYMPHOCYTE % 26 % 20-30 MEAN CELL HGB 32.1 pg 27.0-33.0 MEAN CELL HGB CONCENTRATION 35.0 g/dl 32.0-36.0 MEAN CELL VOLUME 91.7 fl 80.0-100.0 MONOCYTE # 0.4 k/cumm 0.1-1.0 MONOCYTE % 6 % 4-6 RED BLOOD CELL 4.95 m/cumm 4.00-6.00 RED CELL DISTRIBUTION WIDTH 13.7 % 11.0- 15.6 WHITE BLOOD CELL 7.3 k/cumm 5.0-10.0 HEMOGLOBIN 15.9 gm/dL 14.0-18.0 HEMATOCRIT 45.4 % 40.0-54.0 PLATELET COUNT 166 k/cumm 150-450 METABOLIC PANEL, COMPREHN - 06/22/12 15:20 POTASSIUM 3.7 mmol/L 3.5-5.3 EST GFR (MDRD) > 60 mL/min > 59 ANION GAP 7 mmol/L 5-15 EST CrCl (CG) > 60 mL/min > 59 GLUCOSE 124 mg/dL 70-99 CALCIUM 8.7 mg/dL 8.5-10.1 BLOOD UREA NITROGEN 15 mg/dL 7-20 CREATININE 0.9 mg/dL 0.8-1.3 SODIUM 143 mmol/L 135-148 CHLORIDE 105 mmol/L 98-110 AST/SGOT 15 Units/L 10-37 ALT/SGPT 33 Units/L < 66 CARBON DIOXIDE 31 mmol/L 21-32 TOTAL PROTEIN 7.6 gm/dL 6.4-8.2 ALBUMIN 4.0 gm/dL 3.4-5.0 BILI TOTAL 0.5 mg/dL 0.0-1.0 ALKALINE PHOSPHATASE TOTAL 118 Units/L 50 -136 TROPONIN I - 06/22/12 15:20 TROPONIN I < 0.04 ng/mL < 0.15 TROPONIN I BEDSIDE - 06/22/12 15:24 METHOD Bedside TROPONIN I < 0.04 ng/mL < 0.11 CBC With Platelet and Differential - 05/25/16 10:48 Absolute Basophils 0.03 10*3 0.00-0.20 Absolute Eosinophils 0.10 10*3 0.00-0.50 Absolute Lymphocytes 1.37 10*3 0.80-3.30 Absolute Monocytes 0.86 10*3 0.30-1.00 Absolute Neutrophils 5.45 10*3 1.90-7.00 Basophils 0 % 0-2 Eosinophils 1 % 0-4 HCT 43.7 % 42.0-52.0 HGB 14.6 g/dL 14.0-18.0 Immature Granulocytes 0.1 % 0.0-1.0 Lymphocytes 18 % 20-46 MCH 30.3 pg 27.0-32.0 MCHC 33.4 g/dL 32.0-36.0 MCV 90.7 fL 82.0-99.0 Monocytes 11 % 4-11 MPV 12.4 fL 8.8-14.8 Neutrophils 70 % 51-75 Platelet Count 134 K/uL 150-400 RBC 4.82 10*6/uL 4.60-6.20 RDW 15.1 % 11.5-14.5 WBC 7.8 K/uL 4.8-10.8 Comprehensive Metabolic Panel (CMP) - 05/25/16 10:48 Albumin 4.0 g/dL 3.5-5.0 Alkaline Phosphatase 100 U/L 40-150 ALT (SGPT) 37 U/L 0-55 Anion Gap 6 NA 3-20 AST (SGOT) 24 U/L 5-34 Bilirubin Total 0.9 mg/dL 0.2-1.2 BUN 18 mg/dL 8-26 Calcium 8.7 mg/dL 8.9-10.5 Chloride 114 mEq/L 99-111 CO2 23 mEq/L 23-31 Creatinine 0.79 mg/dL 0.72-1.25 Globulin 1.9 g/dL 1.8-4.0 Glucose 108 mg/dL 70-99 Potassium 4.5 mEq/L 3.5-5.2 Protein 5.9 g/dL 6.0-7.6 Sodium 143 mEq/L 135-144 eGFR - 05/25/16 10:48 eGFR >60 mL/min >60 Protime (INR) - 11/09/16 09:31 INR 2.5 NA 0.9-1.2 Encounters ACCT No. Visit Date/Time Discharge Status Pt. Type Provider Facility Loc./Unit Complaint [id number] 06/22/2012 15:05:00 2011 17:08:00 DIS Emergency [facility], [facility] WAdonayEDDavid
[2016-12-09 12:25] VITALS: Ht 188 cm; Wt 138.1 kg
[2016-12-09] MEDS ORDERED: NORMAL SALINE 1,000 ML IV ONE (12:31)
--- NOTE | 2016-12-09 12:35 | NUR ---
MARGUERITE CHUNG IN
--- OUTSIDE RECORDS SUMMARY | 2016-12-09 12:40 | XMS REPORT | Continuity of Care Document ---
Author Author [facility] Organization [facility] Address Unknown Phone Unavailable Support Name Relationship Address Phone Darion HUGHES MD Caregiver [address] [facility] [address] [place] [address] YAMILE PATHAK MD Caregiver [address] [place] [address] [place] [phone] TOMEKA TINEO Caregiver [address] [facility] [address] [place] [address] OLGA HOYT Next Of Kin [address] [place] [address] Insurance Providers Payer Name Policy Number Subscriber Name Relationship [employer] Other [id number] Elvia Hoyt 19 Self Problems Medical Problems [...] F (96.8 - 99.1) Temperature (Calculated Celsius) 36.48383 degrees C (36.0 - 37.3) Pulse Rate [...] specimen been collected/ obtained? Y Urine Specific [place] October 09, 2014 10:02am >=1.030 H - [...] October 09, 2014 8:10am < 2 0-7 HU-Tyv-M-Type Natriuretic Peptide October 09, 2014 8:10am 4920 [...] N 4.5-11.0 Name: ELVIA HOYT Unit #: [id number] : 1955 Sex: M Loc / Svc: ED DOS: 10/09/14 Signed Report #: [id number] DIAGNOSTIC IMAGING REPORT TYPE OF EXAM: CTA [...] Encounters Encounter Location Date/Time Departed Emergency Room [facility] 10/09/14 7:50am Recent Diagnosis
--- OUTSIDE RECORDS SUMMARY | 2016-12-09 12:41 | XMS REPORT | Continuity of Care Document ---
Author Author [facility] Organization [facility] Address Unknown Phone Unavailable Allergies Active Description [...] Status Pt. Type Provider Facility Loc./Unit Complaint [id number] 06/22/2012 15:05:00 2011 17:08:00 DIS Emergency [facility], [facility] WAdonayEDDavid
[2016-12-09] MEDS ORDERED: NITROGLYCERIN 0.4 MG SUBLINGUAL TABLET SL PRN (12:45)
[2016-12-09] MEDS ORDERED: ASPIRIN 81 MG CHEWABLE TABLET PO ONE (12:45)
--- NOTE | 2016-12-09 12:55 | ERPDOC ---
Departure Disposition Decision Date: Dec 09, 2016 Disposition Decision Time: 14:19 Disposition: 01 DISCHARGED HOME, SELF-CARE Impression Impression Impression: Primary Impression: Dehydration Additional Impressions: Elevated INR (international normalized ratio) due to prior anticoagulant medication ingestion Weakness Condition: Stable Seen By: Mid-level only Referrals: EMILE TINEO (Family) Recommend follow up with Dr Tineo this week. Return to the ER if needed. Patient Instructions: Weakness (ED) Problems/Meds/Labs Reviewed?: Yes Medications reviewed and manag: Yes Additional Instructions: WE DID NOT DETERMINE A SOURCE OF YOUR SYMPTOMS TODAY, HOWEVER IT DOES NOT APPEAR TO BE RELATED TO ANYTHING THAT WILL REQUIRE YOU TO REMAIN IN THE HOSPITAL. YOUR INR WAS 4.67 AND YOU SHOULD HOLD YOUR COUMADIN TODAY . CONTACT YOUR DOCTOR REGARDING YOUR INR AND FOLLOW RECOMMENDATIONS. RECOMMEND RESTING TODAY AND TOMORROW AT HOME. CONTACT YOUR DOCTOR TODAY OR TOMORROW REGARDING YOUR COUMADIN DOSAGE AND REPEAT INR. Follow up care ordered?: Yes Mental Status: Alert, Oriented HPI - General Medical General Chief Complaint: Acute Medical Problem Stated Complaint: POSS BLOOD CLOT Time Seen by Provider: 12:29 Source: patient Exam Limitations: no limitations HPI - General Medical Initial Comments Patient presents to the ER by POV from his work with complaints of generally feeling like there is something wrong physically; States he was walking to the break room [employer] and felt flushed and weak and states he can best describe it by saying "something just didn't feel right." Patient has Significant health issues including hx of PE, atrial fib with defib/pacer, CHF with reported EF of about 25%. 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 Patient states his last INR was less than a month ago and is was 2.2. States had heart cath in May in [place] and vessels were all normal. He also states that he has been feeling well since May until today. At this time patient denies pain or SOA. Occurred At: work Onset: Rapid Duration: 1-3 hrs Severity: mild Associated Symptoms: denies symptoms, other (generalilzed feeling of not feeling well, flushed and warm ) Hx of Similar Symptoms: Yes Allergies: Coded Allergies: No Known Allergies (Unverified , 12/09/16) Past History Past Medical History Cardiac: A-fib, CHF, echocardiogram (EF 20% ) Hx Echocardiogram: Yes Respiratory: pulmonary embolus Musculoskeletal: back pain (chronic ) Surgical History Cardiac: implantable defib, pacemaker Family History Family PMH: FOUND: hypertension Vaccines Hx Influenza Vaccination: Yes (07/06) Hx Pneumococcal Vaccination: Yes (09/06) Social History Does patient use chewing tobac: No Substance Use Type: does not use Alcohol Intake: none Review of Systems Constitutional Constitutional: see HPI, DENIES: chills, dizziness, fever Eyes General: DENIES: erythema, exudate Lids/Accessories: DENIES: erythema, swelling Vision: DENIES: double vision ENMT Ears: DENIES: drainage, pain Balance: DENIES: ataxia, vertigo Sinuses: DENIES: congestion, pain, rhinorrhea Nose: DENIES: pain Mouth/Throat: DENIES: painful swallowing, sore throat Jaw: DENIES: pain Cardiovascular Cardiac: DENIES: chest pain, dyspnea on exertion (no worse than baseline at times ), orthopnea Vascular: see HPI, DENIES: pedal edema, unilateral swelling Pulmonary Respiratory: see HPI, DENIES: cough, dyspnea, pleuritic chest pain, sputum GI Upper Abdomen: DENIES: nausea, pain, vomiting Lower Abdomen: DENIES: diarrhea, pain General: DENIES: dysuria, frequency Musculoskeletal General: pain (chronic lower back pain ) Integumentary Skin: DENIES: color change, rash Neurological General: DENIES: headache, syncope, vertigo Hematologic/Lymphatic Hematologic/Lymphatic: other (chronic anticoagulation ) Allergic/Immunological Allergic/Immunoligical: DENIES: hives, sneezing All other Systems All Other Systems: Reviewed and Negative Physical Exam General General Nourishment: well nourished, no acute distress, adult, obese General Body Habitus: well groomed Vitals and Pain First Documented Vital Signs Date Time Temp Pulse Resp B/P Pulse Ox O2 Delivery O2 Flow Rate FiO2 12/09/16 12:25 99.0 82 16 151/74 94 Room Air Weight: Kilograms: 138.100 Height (feet): 6 Height (inches): 2.00 Triage Pain Scale: Normal Exams: Head: Normocephalic w/o trauma Eyes: Pupils are PERRLA w/ EOMI, No scleral icterus, irritation, or foreign bodies noted ENMT: No facial trauma, nasal exudates, pharyngeal erythema, or exudates are noted Dental: No fractured, loose, or missing teeth noted Neck: Full range of motion, without adenopathy, JVD, bruits or thyromegaly Chest/Resp: Clear all fallon, with good airflow, and symmetry bilaterally CV: Regular rate and rhythm, without murmur or gallop, Pulses 2+ all extremities, capillary refill, <2 seconds all ext., no pedal edema noted Abdomen: Bowel sounds positive, soft, non-tender, non-distended, no hepatosplenomegaly, masses or bruits noted Lymphatic: No lymphadenopathy, or lymphedema noted Musculoskeletal: No tenderness, or deformity noted, good range of motion, all extremities Integumentary: No rashes, hives, or bruising noted, hair and nails, without abnormality Neurologic: Patient is alert, and oriented, cranial nerves, motor/sensory/ cerebellar, exams w/o gross deficits, to observation Psychiatric: Patient exhibits, appropriate attention, emotion and affect Differential Diagnoses Considering: Acute VA, CVA, Hypo/Hyperglycemia, Hypo/Hyperkalemia, Hypo/ Hypernatremia, Medication Effect, Metabolic, Pneumonia, Pulmonary Embolus, TIA, UTI Progress Results/Orders Orders Procedure Category Date Status Time Cbc W/Auto LAB 12/09/16 Complete Diff-Reflex Manual 12:31 Cmp - Comprehensive LAB 12/09/16 Complete Metabolic 12:31 Probnp LAB 12/09/16 Complete 12:31 Troponin I W LAB 12/09/16 Complete Hemolysis Index 12:31 INR LAB 12/09/16 Complete 12:31 D-Dimer LAB 12/09/16 Complete 12:31 EKG EKG 12/09/16 Logged 12:31 Chest 1 View RAD 12/09/16 Resulted 12:31 Iv Lock (Ed Only) EDM 12/09/16 Transmitted 12:31 Normal Saline (Normal PHA 12/09/16 In Process Saline Iv) 12:31 Aspirin (Asa) PHA 12/09/16 Complete 12:45 Nitroglycerin PHA 12/09/16 In Process (Nitrostat) 12:45 Orthostatic Vitals FRANCISCO 12/09/16 In Process Signs 13:38 UA, LAB 12/09/16 Logged Dip&Micro(Complete) & 14:01 Lab Results Laboratory Tests Test 12/09/16 12:47 White Blood Count 7.1T/MM3 Red Blood Count 4.37M/MM3 Hemoglobin 13.6GM/DL Hematocrit 40.7% Mean Corpuscular Volume 93.1UM3 Mean Corpuscular Hemoglobin 31.1UUG Mean Corpuscular Hemoglobin Concent 33.4GM/DL RDW Standard Deviation 44.3FL Platelet Count 134T/MM3 Mean Platelet Volume 11.1UM3 Immature Granulocyte % (Auto) 0.3% Neutrophils (%) (Auto) 68.7% Lymphocytes (%) (Auto) 21.2% Monocytes (%) (Auto) 8.4% Eosinophils (%) (Auto) 1.0% Basophils (%) (Auto) 0.4% Absolute Immature Granulocyte (auto 0.02T/MM3 Absolute Neutrophils (auto) 4.9T/MM3 Absolute Lymphocytes (auto) 1.5T/MM3 Absolute Monocytes (auto) 0.6T/MM3 Absolute Eosinophils (auto) 0.1T/MM3 Absolute Basophils (auto) 0.0T/MM3 Prothromb Time International Ratio 4.69 D-Dimer < 150NG/ML Turbidity < 20 Sodium Level 147MEQ/L Potassium Level 4.4MEQ/L Chloride Level 112MEQ/L Carbon Dioxide Level 25MEQ/L Anion Gap 10MEQ/L Blood Urea Nitrogen 25.0MG/DL Creatinine 0.8MG/DL Glomerular Filtration Rate Calc 99 BUN/Creatinine Ratio 31RATIO Glucose Level 95MG/DL Calculated Osmolality 286MOSM/KG Calcium Level 9.3MG/DL Total Bilirubin 0.80MG/DL Icterus Index < 2 Aspartate Amino Transf (AST/SGOT) 25U/L Alanine Aminotransferase (ALT/SGPT) 39U/L Alkaline Phosphatase 94U/L Troponin I 0.020ng/ml GQ-[id number]-Type Natriuretic Peptide 675PG/ML Total Protein 6.8G/DL Albumin 4.0G/DL Globulin 2.8G/DL Albumin/Globulin Ratio 1.4RATIO Chemistry Specimen Hemolysis < 15 Medications Current ED Medications Sodium Chloride (Normal Saline IV) 1,000 ml @ 125 mls/hr Q8H ONCE IV Last administered on 12/09/16t 12:55; Start 12/09/16 at 12:31; Stop 12/09/16 at 20:30 Aspirin (ASA) 324 mg O ONCE PO Last administered on 12/09/16t 12:55; Start at 12:45; Stop 12/09/16 at 12:46; Status DC Nitroglycerin (Nitrostat) 0.4 mg Q5MIN PRN SL CHEST PAIN; Start 12/09/16 at 12: 45 Progress Progress 1330: Patients lab returning without abnormality; patients Na 147 and Cl 112 ; negative troponin, negative d dimer and INR of 4.6. CXR does not indicate acute CHF; bnp pending. Cr is normal at 0.8; BUN slightly elevated at 25. We have no other lab to compare in patients EMR. EKG indicates ventricular pacemaker . 1355: Orthostatics are unremarkable; BNP is 670. No obvious etiology to explain patients symptoms that he experienced today, however feel that it is safe for him to return home. Encouraged him to remain home today and tomorrow and rest, drink fluids and contact Dr Rendon regarding his elevated INR. Patient instructed to hold his coumadin today. INR is 4.6 today and d dimer is <150 which makes PE unlikely. Negative trop, no evidence of exacerbation of his CHF. EKG EKG : Rate: 60-100 Interpreted by: signing physician (Dr Shepherd) EKG Comments electronic ventricular pacemaker. MARGUERITE HAGER APRN Dec 09, 2016 12:55
[2016-12-09 12:56] LABS: BASOPHILS % (AUTO) 0.4 % (0-2); EOSINOPHILS # (AUTO) 0.1 T/MM3 (0-0.5); HCT - HEMATOCRIT 40.7 % (41-53); HGB - HEMOGLOBIN 13.6 GM/DL (13.5-17.5); IMMATURE GRANULOCYTE # (AUTO) 0.02 T/MM3 (0.00-0.03); IMMATURE GRANULOCYTE % (AUTO) 0.3 % (0.0-0.5); LYMPHOCYTES # (AUTO) 1.5 T/MM3 (1-4.8); LYMPHOCYTES % (AUTO) 21.2 % (23-45); MEAN CORPUSCULAR HGB 31.1 UUG (26-34); MEAN CORPUSCULAR HGB CONC(MCHC 33.4 GM/DL (31-37); MEAN CORPUSCULAR VOLUME 93.1 UM3 (80-100); MEAN PLATELET VOLUME 11.1 UM3 (9.4-12.4); MONOCYTES # (AUTO) 0.6 T/MM3 (0-0.8); MONOCYTES % (AUTO) 8.4 % (0-9.0); NEUTROPHILS #(AUTO)-ABSOLUTE 4.9 T/MM3 (1.8-7.7); NEUTROPHILS % (AUTO) 68.7 % (33-66); RED BLOOD COUNT 4.37 M/MM3 (4.50-5.90); WBC - WHITE BLOOD COUNT 7.1 T/MM3 (4.5-11.0)
[2016-12-09] MEDS ORDERED: ATOR20TA59 PO (12:57)
[2016-12-09] MEDS ORDERED: TORS20TA4 PO (12:57)
[2016-12-09] MEDS ORDERED: LOSA50TA52 PO (12:59)
[2016-12-09] MEDS ORDERED: ASCO10007 PO (12:59)
[2016-12-09] MEDS ORDERED: MULT1TAB69 PO (12:59)
[2016-12-09] MEDS ORDERED: OMEG1CAP29 PO (12:59)
[2016-12-09] MEDS ORDERED: CALC-191 PO (12:59)
[2016-12-09 13:05] LABS: ALBUMIN/GLOBULIN RATIO 1.4 RATIO (1.1-2.2); ALKALINE PHOSPHATASE 94 U/L (38-126); ALT (SGPT) 39 U/L (21-72); ANION GAP 10 MEQ/L (5-15); AST (SGOT) 25 U/L (17-59); BUN/CREATININE RATIO 31 RATIO (6-26); CALCIUM 9.3 MG/DL (8.4-10.2); CHLORIDE 112 MEQ/L (98-107); CO2 - CARBON DIOXIDE 25 MEQ/L (22-30); CREATININE 0.8 MG/DL (0.8-1.5); GLOMERULAR FILTRATION RATE 99; GLUCOSE 95 MG/DL (75-110); POTASSIUM 4.4 MEQ/L (3.6-5); SODIUM 147 MEQ/L (134-144); TOTAL PROTEIN 6.8 G/DL (6.3-8.2)
--- NOTE | 2016-12-09 13:10 | NUR ---
REPORT TO MELITON KRISHNA
--- NOTE | 2016-12-09 13:13 | DI ---
Indication: ITS.REASON: chest pain PROCEDURE: CHEST 1 VIEW: Encounter: Initial Comparison: May 17, 2016 Findings: Left cardiac pacemaker defibrillator. Lungs are clear. No pleural effusion or pneumothorax. Mildly elevated left hemidiaphragm. Cardiac silhouette remains moderately enlarged. Mediastinal contours are stable. Pulmonary vascularity appears normal. Impression: Stable chest without acute cardiopulmonary disease. .
[2016-12-09 13:14] LABS: PROTHROMBIN TIME 51.1 SEC (9.31-12.49)
[2016-12-09 13:16] LABS: INR 4.69 (0.76-1.04)
[2016-12-09 13:42] LABS: PROBNP 675 PG/ML (0-175)
[2016-12-09 15:03] LABS: BLOOD, URINE NEGATIVE (NEGATIVE); COLOR,URINE YELLOW (YELLOW); LEUKOCYTE ESTERASE ,URINE NEGATIVE (NEGATIVE); NITRITE,URINE NEGATIVE (NEGATIVE); UROBILINOGEN,URINE 0.2 EU/DL (NORMAL)
[2016-12-09 15:07] VITALS: BP 150/69; PULSE 80; RESP 29; TEMP 99; O2SAT 97
[2016-12-09 15:10] LABS: BACTERIA,URINE TRACE (NEGATIVE); RBC,URINE NONE SEEN /HPF (0-3); SQUAMOUS EPITHELIAL CELL,UR 0-5; WBC,URINE NONE SEEN /HPF (0-5)
== END 2016-12-09 15:07 | disposition home or self-care (01) ==
LOC: ED 11:54
DX: R53.1 Weakness (principal); E86.0 Dehydration; I50.20 Unspecified systolic (congestive) heart failure; Z79.01 Long term (current) use of anticoagulants
CPT/HCPCS: 71010; 80053; 81001; 83880; 84484; 85025; 85379; 85610; 93005; 96360; 96361; 99284; J7030